=== PATIENT | female | born 1950 | race Hispanic/Latino ===

== ENCOUNTER 2025-04-17 05:56 | Observation (INO) | payer OTHER ==
[2025-04-14 10:41] VITALS: BP 118/61; PULSE 78; RESP 16; TEMP 97.4
--- NOTE | 2025-04-14 10:52 | NUR ---
preop erlin rt instructed pt on incentive spirometry
--- NOTE | 2025-04-14 11:18 | EKG ---
[facility] Test Date: 2025-04-14 Test Time: 10:22:03 Pat Name: VICKEY RANDODepartment: [facility] Room: [facility] Gender: F Environmental Director: [id number] : 1950 Requested By: NOHELIA MOODY Order Number: [id number] Reading MD: Amanda Chavez Measurements Intervals [place] Rate: 63 P: 50 MT: 154 QRS: 23 QRSD: 92 T: 48 QT: 389 QTc: 399 Interpretive Statements Sinus rhythm No previous ECG available for comparison Electronically Signed On 04-17-2025 08:54:31 IN SERVICE EDUCATION TEACHER by Amanda Chavez Please click the below link to view image of tracing.
[2025-04-14 11:23] LABS: IMMATURE GRANULOCYTE ABSOLUTE 0.13 K/uL (0-1); NUCLEATED RED BLOOD CELLS 0.0 % (0.0-0.19); PLATELET COUNT (AUTO) 325 K/uL (130-400); RED BLOOD CELL COUNT(AUTO) 3.33 MIL/uL (4.00-5.50); RED CELL DISTRIBUTION WIDTH 19.4 % (11.0-15.5); WHITE BLOOD COUNT (AUTO) 13.2 K/uL (4.8-10.8)
[2025-04-14 11:42] LABS: CREATININE 1.4 mg/dL (0.5-1.0); GLOMERULAR FILTR. RATE CALC 40 mL/min (>90); GLUCOSE,RANDOM 135 mg/dL (70-105); SODIUM SERUM 139 mmol/L (136-145); UREA NITROGEN, BLOOD 27 mg/dL (7-18)
[2025-04-14 11:44] LABS: INR 0.96 (0.85-1.15)
--- NOTE | 2025-04-14 14:03 | NUR ---
REPORT REPORTED CBC/A1C AND THAT PT HAD SLIGHT COUGH DUE TO ALLERGIES PER PT. OK TO PROCEED Addendum: 04/14/25 at 1409 by BEENA CORRALES RN RN RECEIVED ORDERS FOR TYPE AND SCREEN FROM DR MOODY
[~2025-04-17] VITALS: Ht 149.9 cm; Wt 51.3 kg
[2025-04-17] VITALS (29 sets, daily range): BP systolic 114–163; BP diastolic 53–80; PULSE 56–77; RESP 14–19; TEMP 97.6–98.6; O2SAT 95–100
[~2025-04-17 05:56] MED LIST: ALEN70TA80 PO; ATOR40TA71 PO; EMPA10TA PO; FERS325 PO; LOSA50TA64 PO; METF-446 PO; MONT-39 PO; PANT40TA54 PO
[2025-04-17] MEDS: 0.9%NACL 1000ML 1,000 ML IV ONE (06:09)
[2025-04-17] MEDS ORDERED: MIDAZOLAM HCL 1 MG/ML 2ML VIAL ONE (06:49)
[2025-04-17] MEDS ORDERED: TRANEXAMIC ACID 1000MG/10ML ONE (06:52)
[2025-04-17] MEDS ORDERED: LIDOCAINE HCL/EPINEPHRINE 30 ML VIAL IJ ONE (07:05)
[2025-04-17] MEDS: TRANEXAMIC ACID 1000MG/10ML IV ONE (07:32)
[2025-04-17] MEDS ORDERED: GLYCOPYRROLATE 0.2 MG/ML 5 ML VIAL ONE (09:18)
[2025-04-17] MEDS ORDERED: NEOSTIGMINE METHYLSULFATE 1MG/ML IV ONE (09:18)
[2025-04-17] MEDS ORDERED: MEPERIDINE-PF 25 MG/ML SYG ONE (09:29)
[2025-04-17] MEDS ORDERED: PoTASSium chloRIDE 20MEQ ER 20 MEQ ERTAB PO PRN (09:30)
[2025-04-17] MEDS ORDERED: CYCLOBENZAPRINE HCL 10 MG TABLET PO PRN (09:30)
[2025-04-17] MEDS ORDERED: FERROUS FUMARATE 324 MG TABLET PO PRN (09:30)
[2025-04-17] MEDS ORDERED: HYDROcodone/APAP 5/325 1 TAB TABLET PO PRN ×2 (09:30)
[2025-04-17] MEDS ORDERED: PoTASSium chl 10% ELIXIR 20MEQ 20 MEQ/15 ML UDCUP PO PRN (09:30)
[2025-04-17] MEDS ORDERED: PROMETHAZINE HCL 25 MG/ML 1ML AMPULE IM PRN (10:00)
--- NOTE | 2025-04-17 10:26 | HMCIMG ---
EXAM: CR left Knee, 2 views. CLINICAL HISTORY: S/P LEFT TKA SURGERY COMPARISON: None provided. FINDINGS: BONES: No acute fracture or aggressively appearing osseous lesion. JOINTS: The joint spaces show no significant degenerative disease. There is no joint effusion appreciated. SOFT TISSUES: Mild soft tissue swelling is present around the implant. IMPRESSION: No acute osseous pathology evident. Well placed the Left knee implant, with no evidence of fracture or dislocation. Osteopenia /[place]
--- NOTE | 2025-04-17 16:06 | OP ---
Operative Note: DATE OF PROCEDURE: 04/17/25 PREOPERATIVE DIAGNOSIS: Left knee osteoarthritis. POSTOPERATIVE DIAGNOSIS: Left knee osteoarthritis. PROCEDURE PERFORMED: Left knee total knee arthroplasty. SURGEON: Dang Lucas MD GENERATOR WORKER: Nan Angeles and Jose G Stephens. ANESTHESIA: General with adductor canal block. ANESTHESIA: RHEUMATOLOGIST Corey macias. ESTIMATED BLOOD LOSS: 50cc. COMPLICATIONS: None. DRAINS: None. SPECIMENS REMOVED: resected bone. Not sent to pathology. IMPLANTS: [employer] II BCS size 4 Oxinium femur, size 2 tibial base plate, 32 mm patella, 12 mm polyethylene STATEMENT OF MEDICAL NECESSITY: The patient is a 74-year-old female who suffers from left knee osteoarthritis failing conservative management. After discussion of the risks, benefits, and alternatives with the patient, they voluntarily agreed to undergo the aforementioned procedure. DESCRIPTION OF PROCEDURE: Patient was properly identified in the preoperative holding area. Surgical site marking was verified and surgery consent reviewed. The patient was then taken to the operating room and placed in supine position on the OR table. After induction of general anesthesia, preoperative antibiotics were given, all bony prominences were well-padded, and a well padded tourniquet was applied but not inflated at this time. The left lower extremity was then prepped and draped in usual sterile fashion. Surgical time out was done verifying correct surgery, side, site, and location to be performed. We then began the procedure by exsanguinating the limb using an Esmarch and inflating the tourniquet to 350 mmHg. At this point, we made an anterior midline incision using a 10 blade, coming down sharply the level of the fascia. Skin flaps were elevated medially and laterally. We then obtained a clean 10 blade and performed a standard medial parapatellar arthrotomy. We excised the infrapatellar fat pad. We performed our soft tissue releases off of the tibia. We transected the ACL and removed the anterior portion of the medial & lateral meniscus. We then brought the knee into hyperflexion with the patella everted. We used our entry reamer to enter the femoral canal. We then placed our intramedullary cutting guide for our distal femoral cutting block. We then performed our distal femoral osteotomy ensuring appropriate rotation and removed the bony wafer. We then removed these pins and block and then used jig 2 to size the distal femur with the after mentioned size found. We then placed our 5-in-1 cutting block in 4 degrees of external rotation and took our 5 cuts ensuring to protect the patellar tendon and the collateral ligaments. We then removed the cutting block and our bony fragments using a curved osteotome. We then placed our PCL retractor subluxating the tibia anteriorly. Using an extra medullary tibial cutting guide, we hung the block for our proximal tibial cut taking 2 mm off the more diseased portion. Prior to pinning this block in place, we ensured appropriate varus/valgus alignment and posterior slope similar to the [place] slope of the patient's knee. We then performed our proximal tibia l osteotomy and removed the bony wafer using Bovie electrocautery to release any remaining soft tissue attachments. We then used our tibial sizing paddle and checked once more for varus & valgus alignment and found this to be appropriate. At this point, we pinned our tibial paddle in place. We then removed the PCL retractor and subluxated the tibia posteriorly while we placed our femoral trial component. We then finished preparing the notch with the reamer and box chisel. The notch portion of the trial femoral component was then placed. A posterior stabilized polyethylene, size 9 trial was placed. We immediately increased up t o a size 11 polyethylene due to laxity with varus and valgus stressing. The knee was then taken through range of motion and found to have stable full range of motion. We then placed a bump under the ankle and everted the patella to perform our freehand cut of the undersurface the patella. We then sized our patella and reamed to the lug holes for this. We placed our trial patellar component and begin to take the knee through range of motion. The patella had [place] tracking. At this point we began removing our trial components and punched the tibial keel prior to removing our tibial trial component. Final components were opened and cement was mixed on the back table while we injected local cocktail in the posterior capsule. We then thoroughly irrigated out the bone and dried the bony surfaces. We cemented our tibial component in place ensuring to remove excess cement and placed our trial polyethylene. We then cemented our femoral component in place once again taking time to ensure excess cement was removed leg was brought into full extension to help squeeze the excess cement from around the femoral component. We then brought the knee back in a flexion to remove this portion of the cement at this point we placed the ankle in a bump thoroughly irrigated off the patellar component and cemented our patellar component in standard fashion again removing excess cement. While we waited for the cement to cure, we thoroughly irrigated out the wound with normal saline. Once our cement had cured, we took the knee through a range of motion and found full and stable range of motion. We then elected to use the size 12 polyethylene and removed our trial polyethylene. We impacted our final polyethylene component in place in standard fashion and took the knee through a range of motion check once more. This was satisfactory so we began to repair the arthrotomy using #5 Ethibond and #1 Vicryl in interrupted [id number]-[id number] fashion. Subcutaneous tissue was repaired using 2-0 Vicryl. Running subcuticular 3-0 Mon ocryl stitch with Dermabond placed over this for the skin. We then applied a foam barrier dressing and a pressure dressing consisting of 4 x 4's fluffs and an Dereck wrap. The tourniquet was then deflated. Patient was awakened from anesthesia, and they were taken to the recovery room in stable condition. DANG LUCAS MD Apr 17, 2025 16:06
[2025-04-17] MEDS: 0.9%NACL 1000ML 1,000 ML IV SCH (17:38)
[2025-04-17] MEDS: FERROUS SULFATE 325 MG TABLET.DR PO SCH (20:53)
[2025-04-18] VITALS: BP 135/69; PULSE 74; RESP 18; TEMP 99.5
[2025-04-18] MEDS: HYDROcodone/APAP 5/325 1 TAB TABLET PO PRN (01:25)
[2025-04-18 03:57] LABS: NUCLEATED RED BLOOD CELLS 0.1 % (0.0-0.19); PLATELET COUNT (AUTO) 210.0 K/uL (130-400); RED BLOOD CELL COUNT(AUTO) 2.41 MIL/uL (4.00-5.50); RED CELL DISTRIBUTION WIDTH 19.9 % (11.0-15.5); WHITE BLOOD COUNT (AUTO) 16.1 K/uL (4.8-10.8)
[2025-04-18 04:00] VITALS: BP 155/93; PULSE 84; RESP 20; TEMP 99.1
[2025-04-18 04:06] LABS: CREATININE 1.2 mg/dL (0.5-1.0); GLOMERULAR FILTR. RATE CALC 48.0 mL/min (>90); GLUCOSE,RANDOM 111.0 mg/dL (70-105); SODIUM SERUM 148.0 mmol/L (136-145); UREA NITROGEN, BLOOD 24.0 mg/dL (7-18)
--- NOTE | 2025-04-18 04:24 | NUR ---
Critical Lab Attempted to contact physician with no answer at 0410. Lucia Scott contacted. Addendum: 04/18/25 at 0807 by KATELYNN ORTA LVN LVN Dr. Lucas was contacted with orders [id number]
[2025-04-18 08:00] VITALS: BP 160/83; PULSE 75; RESP 17; TEMP 98.4
--- NOTE | 2025-04-18 08:08 | PN ---
Ortho postop day one This morning the patient is awake alert and oriented. She is seated out of bed in a chair however she is complaining of dizziness. Critical labs reported this morning and is Currently receiving unit of PRBCs . The patient states she suffers from chronic anemia and she always typically needs to have blood transfusions after any surgery. We will continue to observe and treat per protocol. Vital signs have remained stable Afebrile. Operative findings discussed with the patient. Voiding on her own. Reinforced incentive spirometry. Dereck bandage has been removed. The dressing is intact. The gastrocnemius a soft nontender. She has alternating extension and flexion of the foot while seated in a chair using a footstool. Ice is present to operative site. She did ambulate yesterday with physical therapy about 50 ft and is pending further physical therapy this morning depending on her symptoms from acute postoperative anemia. Discharge goal is skilled nurse facility. Assessment status post left total knee arthroplasty. Acute postoperative blood loss anemia. Plan: Continue Dr. Lucas's TKA protocol and discharge planning. Currently receiving PRBCs continue to observe and treat per protocol Vitals/Labs Vital Signs Date Time Temp Pulse Resp B/P (MAP) Pulse Ox O2 Delivery O2 Flow Rate FiO2 04/18/25 04:00 99.1 84 20 155/93 97 Nasal Cannula 2.0 04/17/25 20:00 28 Laboratory Tests 04/18/25 03:32 Medications Current Medications Cefazolin Sodium 2 gm STK-MED ONCE .ROUTE; Start 04/17/25 at 06:09; Stop 04/17/25 at 06:09; Status DC Sodium Chloride 1,000 ml @ As Directed STK-MED ONCE IV; Start 04/17/25 at 06:09; Stop 04/17/25 at 06:09; Status DC Midazolam HCl 2 mg STK-MED ONCE .ROUTE; Start 04/17/25 at 06:49; Stop 04/17/25 at 06:49; Status DC Propofol 200 mg STK-MED ONCE IV; Start 04/17/25 at 06:49; Stop 04/17/25 at 06:49; Status DC Rocuronium [place] 50 mg STK-MED ONCE .ROUTE; Start 04/17/25 at 06:49; Stop 04/17/25 at 06:49; Status DC Fentanyl Citrate 100 mcg STK-MED ONCE .ROUTE; Start 04/17/25 at 06:50; Stop 04/17/25 at 06:50; Status DC Tranexamic Acid 1,000 mg STK-MED ONCE .ROUTE; Start 04/17/25 at 06:52; Stop 04/17/25 at 06:52; Status DC Ketorolac Tromethamine 30 mg STK-MED ONCE .ROUTE; Start 04/17/25 at 06:52; Stop 04/17/25 at 06:53; Status DC Ropivacaine 150 mg STK-MED ONCE .ROUTE; Start 04/17/25 at 06:52; Stop 04/17/25 at 06:53; Status DC Acetaminophen 100 ml @ As Directed STK-MED ONCE .ROUTE; Start 04/17/25 at 07:01; Stop 04/17/25 at 07:02; Status DC Ropivacaine 150 mg STK-MED ONCE .ROUTE; Start 04/17/25 at 07:05; Stop 04/17/25 at 07:05; Status DC Lidocaine/ Epinephrine 30 ml STK-MED ONCE IJ; Start 04/17/25 at 07:05; Stop 04/17/25 at 07:05; Status DC Dexamethasone Sodium Phosphate 10 mg STK-MED ONCE .ROUTE; Start 04/17/25 at 07:07; Stop 04/17/25 at 07:07; Status DC Cefazolin Sodium 2 gm STK-MED ONCE IVPB Last administered on 04/17/25at 07:26; Start 04/17/25 at 07:26; Stop 04/17/25 at 07:56; Status DC Tranexamic Acid 1,000 mg STK-MED ONCE IV Last administered on 04/17/25at 07:32; Start 04/17/25 at 07:32; Stop 04/17/25 at 07:56; Status DC Ketorolac Tromethamine 30 mg STK-MED ONCE IVP Last administered on 04/17/25at 07:39; Start 04/17/25 at 07:39; Stop 04/17/25 at 07:56; Status DC Ropivacaine 150 mg STK-MED ONCE IJ Last administered on 04/17/25at 07:40; Start 04/17/25 at 07:40; Stop 04/17/25 at 07:56; Status DC Phenylephrine HCl 10 mg STK-MED ONCE IV; Start 04/17/25 at 07:51; Stop 04/17/25 at 07:51; Status DC Fentanyl Citrate 100 mcg STK-MED ONCE .ROUTE; Start 04/17/25 at 09:17; Stop 04/17/25 at 09:17; Status DC Sodium Chloride 1,000 ml @ 100 mls/hr Q10H IV Last administered on 04/17/25at 17:38; Start 04/17/25 at 09:30; Stop 04/18/25 at 09:29 Polyethylene Glycol 17 gm DAILY PO; Start 04/18/25 at 09:00; Stop 05/18/25 at 08:59 Bisacodyl 10 mg DAILY PRN RC; Start 04/20/25 at 09:30; Stop 05/20/25 at 09:29 Ketorolac Tromethamine 15 mg Q6H PRN IV; Start 04/18/25 at 09:30; Stop 04/23/25 at 09:29 Ferrous Fumarate 324 mg DAILY PRN PO; Start 04/17/25 at 09:30; Stop 05/17/25 at 09:29 Ondansetron HCl 4 mg Q6H PRN IVP; Start 04/17/25 at 09:30; Stop 05/17/25 at 09:29 Calcium Carbonate 500 mg Q12H PRN PO; Start 04/17/25 at 09:30; Stop 05/17/25 at 09:29 Insulin Human Regular INSULIN SLIDING SCAL... ACHS SQ Last administered on 04/17/25at 20:57; Start 04/17/25 at 11:30; Stop 05/17/25 at 11:29 Cefazolin Sodium 2 gm Q8H IVP Last administered on 04/17/25at 23:29; Start 04/17/25 at 14:30; Stop 04/17/25 at 22:31; Status DC Cyclobenzaprine HCl 5 mg Q8H PRN PO; Start 04/17/25 at 09:30; Stop 05/17/25 at 09:29 Gabapentin 100 mg TID PO Last administered on 04/17/25at 20:53; Start 04/17/25 at 14:00; Stop 05/17/25 at 13:59 Aspirin 325 mg DAILY PO; Start 04/18/25 at 09:00; Stop 05/18/25 at 08:59 Ketorolac Tromethamine 15 mg Q8H IV Last administered on 04/17/25at 10:22; Start 04/17/25 at 09:30; Stop 04/17/25 at 10:27; Status DC Docusate Sodium 100 mg BID PO Last administered on 04/17/25at 20:51; Start 04/17/25 at 21:00; Stop 05/17/25 at 20:59 Potassium Chloride 100 ml @ 100 mls/hr AD PRN IV; Start 04/17/25 at 09:30; Stop 05/17/25 at 09:29 Potassium Chloride 20 meq AD PRN PO; Start 04/17/25 at 09:30; Stop 05/17/25 at 09:29 Potassium Chloride 20 meq AD PRN PO; Start 04/17/25 at 09:30; Stop 05/17/25 at 09:29 Tramadol HCl 50 mg Q6H PRN PO; Start 04/17/25 at 09:30; Stop 04/22/25 at 09:29 Acetaminophen/ Hydrocodone Bitart Q4H PRN PO; Start 04/17/25 at 09:30; Stop 04/17/25 at 09:25; Status DC Atorvastatin Calcium 40 mg HS PO Last administered on 04/17/25at 20:52; Start 04/17/25 at 21:00; Stop 05/17/25 at 20:59 Empaglifozin 10 mg DAILY PO; Start 04/18/25 at 09:00; Stop 05/18/25 at 08:59 Losartan Potassium 50 mg DAILY PO; Start 04/18/25 at 09:00; Stop 05/18/25 at 08:59 Montelukast Sodium 10 mg HS PO Last administered on 04/17/25at 20:53; Start 04/17/25 at 21:00; Stop 05/17/25 at 20:59 Pantoprazole Sodium 40 mg DAILY PO; Start 04/18/25 at 09:00; Stop 05/18/25 at 08:59 Alendronate Sodium 70 mg QWEEK@0630 PO; Start 04/24/25 at 06:30; Stop 05/24/25 at 06:29 Ferrous Sulfate 325 mg BID PO Last administered on 04/17/25at 20:53; Start 04/17/25 at 21:00; Stop 05/17/25 at 20:59 Metformin HCl 1,000 mg BIDMEALS PO Last administered on 04/17/25at 17:38; Start 04/17/25 at 17:00; Stop 05/17/25 at 16:59 Glycopyrrolate 1 mg STK-MED ONCE .ROUTE; Start 04/17/25 at 09:18; Stop 04/17/25 at 09:18; Status DC Neostigmine Methylsulfate 10 mg STK-MED ONCE IV; Start 04/17/25 at 09:18; Stop 04/17/25 at 09:18; Status DC Acetaminophen/ Hydrocodone Bitart 1 tab Q4H PRN PO; Start 04/17/25 at 09:30; Stop 04/22/25 at 09:29 Acetaminophen/ Hydrocodone Bitart 2 tab Q4H PRN PO Last administered on 04/18/25at 06:13; Start 04/17/25 at 09:30; Stop 04/22/25 at 09:29 Meperidine HCl 25 mg STK-MED ONCE .ROUTE; Start 04/17/25 at 09:29; Stop 04/17/25 at 09:29; Status DC Propofol 200 mg STK-MED ONCE IV; Start 04/17/25 at 09:37; Stop 04/17/25 at 09:37; Status DC Ondansetron HCl 4 mg AD PRN IVP; Start 04/17/25 at 10:00; Stop 04/17/25 at 14:44; Status DC Metoclopramide HCl 10 mg AD PRN IVP; Start 04/17/25 at 10:00; Stop 04/17/25 at 14:44; Status DC Promethazine HCl 25 mg AD PRN IM; Start 04/17/25 at 10:00; Stop 04/17/25 at 14:44; Status DC Ketorolac Tromethamine 30 mg AD PRN IV; Start 04/17/25 at 10:00; Stop 04/17/25 at 14:44; Status DC Morphine Sulfate 2 mg AD PRN IVP; Start 04/17/25 at 10:00; Stop 04/17/25 at 14:44; Status DC Fentanyl Citrate 25 mcg Q5MIN PRN IVP; Start 04/17/25 at 10:00; Stop 04/17/25 at 14:44; Status DC Naloxone HCl 0.1 mg AD PRN IVP; Start 04/17/25 at 10:00; Stop 04/17/25 at 14:44; Status DC Albuterol 1 udvial ONCE ONCE IH; Start 04/17/25 at 10:30; Stop 04/17/25 at 10:31; Status DC Albuterol 1 udvial STK-MED ONCE IH; Start 04/17/25 at 10:10; Stop 04/17/25 at 10:10; Status DC Ketorolac Tromethamine 15 mg STK-MED ONCE .ROUTE; Start 04/17/25 at 10:20; Stop 04/17/25 at 10:20; Status DC Cefazolin Sodium 2 gm STK-MED ONCE .ROUTE; Start 04/17/25 at 14:47; Stop 04/17/25 at 14:47; Status DC Gabapentin 100 mg STK-MED ONCE .ROUTE; Start 04/17/25 at 14:47; Stop 04/17/25 at 14:47; Status DC [facility] Apr 18, 2025 08:08
[2025-04-18] MEDS: EMPAGLIFLOZIN 10MG TABLET PO SCH (08:33)
[2025-04-18] MEDS: ASPIRIN 325MG EC TAB PO SCH (08:34)
[2025-04-18 12:00] VITALS: BP 157/74; PULSE 80; RESP 17; TEMP 98.2
--- NOTE | 2025-04-18 12:15 | NUR ---
ORTHO COORDINATOR: QATARI SPEAKING ONLY. NO DIRECTOR OF ANALYTICS AVAILABLE. PATIENT UP TO CHAIR. MOVED FROM CHAIR TO BED. B SCD SLEEVES APPLIED AND MACHINE ACTIVATED. DRESSING TO LEFT KNEE CLEAN, DRY AND INTACT. PATIENT RATING PAIN 10/10. REPORT TO PRIMARY NURSE.
[2025-04-18] MEDS: CALCIUM CARB 500MG PO PRN (15:14)
--- NOTE | 2025-04-18 15:41 | NUR ---
DC PLAN VISITED WITH PATIENT. PATIENT LIVES WITH DAUGHTER IN [place]. INDEPENDENT ABLE TO PERFORM ADL'S. PATIENT HAS NO SERVICES OR DME'S. FEELS THAT NEEDS TO GO TO SNF. FEELS VERY WEAK. NATASHA WENDY MALAVE. REFERRAL SENT. PASRR SENT.
[2025-04-18 16:00] VITALS: BP 155/74; PULSE 78; RESP 18; TEMP 98.4
[2025-04-18 20:00] VITALS: BP 143/69; PULSE 89; RESP 19; TEMP 99.2; O2SAT 100
[2025-04-19] VITALS: BP 160/68; PULSE 96; RESP 20; TEMP 100.4
[2025-04-19 04:00] VITALS: BP 127/66; PULSE 84; RESP 18; TEMP 98.8
[2025-04-19 05:13] LABS: IMMATURE GRANULOCYTE ABSOLUTE 0.05 K/uL (0-1); NUCLEATED RED BLOOD CELLS 0.0 % (0.0-0.19); PLATELET COUNT (AUTO) 189 K/uL (130-400); RED BLOOD CELL COUNT(AUTO) 3.06 MIL/uL (4.00-5.50); RED CELL DISTRIBUTION WIDTH 18.7 % (11.0-15.5); WHITE BLOOD COUNT (AUTO) 11.4 K/uL (4.8-10.8)
[2025-04-19 05:18] LABS: CREATININE 1.1 mg/dL (0.5-1.0); GLOMERULAR FILTR. RATE CALC 53.0 mL/min (>90); GLUCOSE,RANDOM 120.0 mg/dL (70-105); SODIUM SERUM 139.0 mmol/L (136-145); UREA NITROGEN, BLOOD 18.0 mg/dL (7-18)
[2025-04-19 08:00] VITALS: BP 126/66; PULSE 88; RESP 17; TEMP 97.9
[2025-04-19 09:05] VITALS: O2SAT 97
[2025-04-19 12:00] VITALS: BP 140/69; PULSE 78; RESP 18; TEMP 97.9
--- NOTE | 2025-04-19 12:45 | NUR ---
ORTHO COORDINATOR: TEACHING REGARDING DVT AND PNEUMONIA PREVENTION, PAIN EXPECTATIONS AND PAIN MANAGEMENT. PORTUGUESE SPEAKING ONLY, CALLED PRIMARY NURSE TO BEDSIDE. SURGEON ROUNDING. PATIENT UP TO CHAIR. B SCD SLEEVES IN ROOM, MACHINE IN ROOM. DRESSING TO L KNEE CLEAN, DRY AND INTACT. PATIENT RETURN DEMONSTRATED PROPER USE OF INCENTIVE SPIROMETER, ENCOURAGED TO CONTINUE USE DURING REHAB UNTIL PRESURGERY ACTIVITY LEVEL ACHIEVED. PATIENT RETURN DEMONSTRATED PROPER FOOT FLEXION AND EXTENSION EXERCISES, RATIONALE FOR PERFORMING REVIEWED. PATIENT VERBALIZED UNDERSTANDING TO ALL INSTRUCTIONS.
[2025-04-19] MEDS ORDERED: CYCL-309 PO (13:28)
[2025-04-19] MEDS ORDERED: HYDR-4060 PO (13:28)
[2025-04-19] MEDS ORDERED: ASPI-891 PO (13:28)
[2025-04-19] MEDS ORDERED: DOCU-116 PO (13:28)
[2025-04-19] MEDS ORDERED: GABA100C PO (13:28)
[2025-04-19] MEDS ORDERED: CHOL2000 PO (13:28)
--- NOTE | 2025-04-19 13:33 | DS ---
Discharge Summary Hospital Course Summary: The patient was admitted to the hospital postoperatively on 04/17/2025 after undergoing left total knee arthroplasty. They did well with routine postoperative pain control. They worked well with physical therapy. They developed some acute blood loss anemia worsened her chronic anemia. She received1 unit of packed red blood cells to treat this. The hospital course was otherwise uncomplicated. They were subsequently able to be discharged on postoperative day 2 once discharge arrangements were made with [facility]. Operations Manager Assistant(s): None Procedure(s): Left total knee arthroplasty Assessment/Plan: POD 2 Doing well. IS 900. H&H improved. Filemon PO well. LLE -dressing c/d/i -tolerates to within 5 full extension, flexion 80 ASSESSMENT: Status post left total knee arthroplasty doing well Acute blood loss anemia on chronic anemia, now asymptomatic PLAN: See discharge instructions Discharge Instructions: Begin working with physical therapy at the facility. Dressing may be removed 04/20/2025 and left open to air. Showers ok allowing soap and water to run over the wound. Pat dry. Do not submerge wound in tub/pool. Do not apply ointments. Do not apply Betadine. Do not apply peroxide. Ice packs to decrease pain/swelling. Prescriptions have been sent to the pharmacy: *[place] 5/325mg 1-2 tab every 6 hours as needed for severe pain. (please call for refills) Cyclobenzaprine 5mg 1 tab every 8 hours as needed for muscle spasm pain. Gabapentin 100mg 1 tab every 8 hours (may discontinue if drowsy). Colace 100mg 1 tab orally twice a day as needed for constipation. Aspirin 325mg once a day for 30 days to prevent blood clots. Omeprazole 40mg once a day for 30 days to prevent stomach ulcers. Vitamin D3 2000 units once a day to assist with healing. Follow up visit scheduled for May 09, 2025 at 9:15 am at [facility]. Home Medications: Active Scripts Hydrocodone/Acetaminophen (Hydrocodon-Acetaminophen 5-325) 5 Mg-325 Mg Tablet, 1-2 TAB PO Q6HPRN PRN for post op pain, #56 TAB 0 Refills Prov:NOHELIA MOODY MD 04/19/25 Reported Medications Metformin HCl (Metformin HCl) 1,000 Mg Tablet, 1000 MG PO BID, TAB 04/14/25 Empagliflozin (Jardiance) 10 Mg Tablet, 10 MG PO DAILY, TAB 04/14/25 Pantoprazole Sodium (Pantoprazole Sodium) 40 Mg Tablet.dr, 40 MG PO DAILY, TAB 04/14/25 Montelukast Sodium (Montelukast Sodium) 10 Mg Tablet, 10 MG PO HS, TAB 04/14/25 Atorvastatin Calcium (Atorvastatin Calcium) 40 Mg Tablet, 40 MG PO HS, TAB 04/14/25 Losartan Potassium (Losartan Potassium) 50 Mg Tablet, 50 MG PO DAILY, TAB 04/14/25 Ferrous Sulfate (Ferrous Sulfate) 325 Mg (65 Mg Iron) Ectab, 325 MG PO BID, TAB.EC 04/14/25 Alendronate Sodium (Alendronate Sodium) 70 Mg Tablet, 70 MG PO WEEKLY, TAB 04/14/25 NOHELIA MOODY MD Apr 19, 2025 13:33
--- NOTE | 2025-04-19 16:58 | NUR ---
GUILHERME REPORT called [facility] in [place], spoke with PAUL pinto. report was given, all questions and concerns were answered. will send out their tow bar driver to picker and packer pt from facility
[2025-04-24] MEDS ORDERED: ALENDRONATE SODIUM 35 MG TAB PO SCH (06:30)
== END 2025-04-19 17:40 ==
LOC: DAH 05:56 → DAHIP 09:14 → 4AH 16:20
PROVIDERS: ADMIT Student in an Organized Health Care Education/Training Program; ATTEND Student in an Organized Health Care Education/Training Program
DX: M17.12 Unilateral primary osteoarthritis, left knee (principal); M25.562 Pain in left knee; D62 Acute posthemorrhagic anemia; I12.0 Hypertensive chronic kidney disease with stage 5 chronic kidney disease or end stage renal disease; E11.22 Type 2 diabetes mellitus with diabetic chronic kidney disease; N18.6 End stage renal disease; Z79.899 Other long term (current) drug therapy; Z98.890 Other specified postprocedural states
CPT/HCPCS: 83036; 82040; 80048 ×3; 85025 ×2; 85610; 85730; 84134; 86140; 36415 ×4; 93005; 87641; 64447; 27447; 96374; 86850; 86900; 86901; 86923; 82948 ×9; 73560; 97161; 97116 ×5; 36430; 96375; 85027; 97530 ×2; 96376; J1815; G0378 ×56; A4223 ×2; A4663; J3010 ×2; J3490 ×4; J1100; J7030; J2250; J2704 ×2; J1885 ×5; J2710; J2175; J2795 ×3; J2371; J0690 ×4; C1713 ×2; A4649 ×2; C1776; A6255; A5120; A4215; A4213; A4222; A4221; A4216; P9016